=== PATIENT | female | born 1995 | race Caucasian/White ===

== ENCOUNTER 2016-09-22 14:50 | Emergency (ER) | payer OTHER ==
--- NOTE | 2016-09-22 15:04 | Emergency Department Record ---
History of Present Illness - General Stated Complaint: bucked off a horse Time Seen by Provider: 09/22/16 14:57 Source: Patient Mode of Arrival: Wheelchair Limitations: No limitations - History of Present Illness Initial Comments: 21 yo female presents after a fall off a horse. She fell off landing on her left side. No LOC but her helmet broke. No headache or neck pain. She has pain over the left flank down to the left hip. She was unable to bear weight. No right sided pain. She is a normally healthy person. She is on control and just had a menstrual cycle. No history of surgery. MD Complaint: Fall -: Minutes(s) Fall From: Other (Off a horse) Fall Witnessed: Yes, by bystander Place Fall Occurred: Work Loss of Consciousness: None Prolonged Down Time?: No Symptoms Prior to Fall: None Location: Chest, Back, Abdomen Location - Extremities: Left: Shoulder Severity: Severe Severity scale (1-10): 9 Quality: Aching Associated Symptoms: Abdominal pain, Chest pain - Juan Alberto Coma Scale Eye Response: (4) Open spontaneously Motor Response: (6) Obeys commands Verbal Response: (5) Oriented Juan Alberto Total: 15 - Related Data Home Medications Medication Instructions Recorded Confirmed Last Taken Ethynodiol D-Ethinyl Estradiol #28 01/16/16 Unknown [[place] 1-35 28 Tablet] Previous Rx's Medication Instructions Recorded Hydrocodone/Acetaminophen [[place] 1 tab PO Q6H PRN #20 tab 09/22/16 7.5mg/325mg] Naproxen [Naprosyn] 500 mg PO Q12H #20 tab 09/22/16 Allergies Allergy/AdvReac Type Severity Reaction Status Date / Time No Known Drug Allergies Allergy Unverified 01/16/16 11:18 Review of Systems Constitutional: Denies: Chills, Fever, Malaise, Weakness Eyes: Denies: Eye discharge ENT: Denies: Congestion, Throat pain Respiratory: Denies: Cough, Dyspnea, Hemoptysis, Stridor, Wheezes Cardiovascular: Reports: Chest pain. Denies: Palpitations, Syncope Endocrine: Denies: Fatigue, Polydipsia, Polyuria Gastrointestinal: Reports: Abdominal pain. Denies: Diarrhea, Nausea, Vomiting Genitourinary: Denies: Dysuria Musculoskeletal: Reports: Back pain, Myalgia. Denies: Neck pain Skin: Denies: Bruising, Change in color Neurological: Denies: Confusion, Headache, Numbness, Tremors, Vertigo, Weakness Psychiatric: Denies: Anxiety Hematological/Lymphatic: Denies: Blood Clots, Easy bleeding, Easy bruising, Swollen glands Past Medical History - SOCIAL HISTORY Smoking Status: Never smoker - RESPIRATORY Hx Respiratory Disorders: No - CARDIOVASCULAR Hx Cardio Disorders: No - NEURO Hx Neuro Disorders: No - GI Hx GI Disorders: No - Hx Genitourinary Disorders: No - ENDOCRINE Hx Endocrine Disorders: No - MUSCULOSKELETAL Hx Musculoskeletal Disorders: No - PSYCH Hx Psych Problems: No - HEMATOLOGY/ONCOLOGY Hx Hematology/Oncology Disorders: No Physical Exam - General General Appearance: Alert, Oriented x3, Cooperative, No acute distress Limitations: No limitations - Head Head exam: Atraumatic, Normocephalic, Normal inspection Head exam detail: negative: Abrasion, Contusion, Man's sign, General tenderness, Hematoma, Laceration - Eye Eye exam: Normal appearance, PERRL, EOMI. negative: Conjunctival injection, Periorbital swelling - ENT ENT exam: Normal exam, Mucous membranes moist Ear exam: Normal external inspection Nasal Exam: Normal inspection Mouth exam: Normal external inspection - Neck Neck exam: Normal inspection, Full ROM. negative: Tenderness - Respiratory Respiratory exam: Normal lung sounds bilaterally, Chest wall tenderness (left lower lateral ribs). negative: Respiratory distress - Cardiovascular Cardiovascular Exam: Regular rate, Normal rhythm, Normal heart sounds - GI/Abdominal GI/Abdominal exam: Soft, Tenderness (tender lateral flank). negative: Guarding - Rectal Rectal exam: Deferred - exam: Deferred - Extremities Extremities exam: Normal capillary refill, Tenderness. negative: Normal inspection, Full ROM Image of Full Body: 1 - superficial abrasion 2 - tender to palpation , no skin changes - Back Back exam: Reports: CVA tenderness (L), Paraspinal tenderness, Tenderness. Denies: Full ROM - Neurological Neurological exam: Alert, Normal gait, Oriented X3. negative: Motor sensory deficit - Psychiatric Psychiatric exam: Normal affect, Normal mood - Skin Skin exam: Dry, Intact, Normal color, Warm Course - Reevaluation(s) Reevaluation #1: Trauma activation 09/22/16 15:18 The labs were reviewed No acute changes 09/22/16 16:31 Reevaluation #2: The CT scan of the head, cervical, chest, abdomen and pelvis are negative. No acute injuries This was discussed with the patient She was re-examined. No new areas of pain outside of the areas CT scanned. We discussed home care with not weight bearing until pain free, recheck in the ED or PCP this week We discussed reasons to return to the ER for a recheck as well. 09/22/16 16:30 Medical Decision Making - Lab Data Result diagrams: 09/22/16 15:06 09/22/16 15:06 Disposition Disposition: Discharge Clinical Impression: Contusion, hip Qualifiers: Encounter type: initial encounter Laterality: left Qualified Code(s): S70.02XA - Contusion of left hip, initial encounter Fall Qualifiers: Encounter type: initial encounter Qualified Code(s): W19.XXXA - Unspecified fall, initial encounter Disposition: Home, Self-Care Condition: (1) Good Instructions: Hip Contusion (ED) Additional Instructions: No weight bearing until pain free Use the crutches at all times until pain free Return if you have uncontrolled pain, any new pain, any new concerns Either see your doctor or return this week for a recheck of your injuries Prescriptions: Hydrocodone/Acetaminophen [[place] 7.5mg/325mg] 1 tab PO Q6H PRN #20 tab PRN Reason: Pain - General Naproxen [Naprosyn] 500 mg PO Q12H #20 tab.dr Forms: Patient Portal Access Time of Disposition: 17:26 Quality - Quality Measures Quality Measures: N/A - Blood Pressure Screening View Details: Yes Blood Pressure Classification: Hypertensive Reading Systolic Measurement: 140 Diastolic Measurement: 79 Screening for High Blood Pressure: < Pre-Hypertensive BP, F/U Documented > [ G8950] Pre-Hypertensive Follow-up Interventions: Referral to alternative/primary care provider.
[2016-09-22] MEDS ORDERED: ONDANSETRON HCL IV 4 MG/2 ML VIAL IVP ONE (15:11)
[2016-09-22] MEDS: ONDANSETRON HCL IV 4 MG/2 ML VIAL IVP ONE (15:13)
[2016-09-22] MEDS: MORPHINE SULFATE 5 MG/ML PFS IVP ONE (15:13)
[2016-09-22] MEDS: 0.9 % SODIUM CHLORIDE 1,000 ML BAG IV ONE (15:14)
[2016-09-22 15:19] LABS: BASO % 0.5 % (0-6); EOS % 1.1 % (0-6); HEMATOCRIT 41.4 % (35.0-47.0); HEMOGLOBIN 14.3 gm/dl (11.6-16.0); LYMPH % 41.2 % (16-45); MEAN CORPUSCULAR HGB CONC 34.5 g/dl (32-36); MEAN PLATELET VOLUME 9.2 fl (7.4-10.4); MONO % 7.2 % (0-9); PLATELET COUNT 284 K/uL (130-400); RED BLOOD COUNT 4.76 M/uL (3.80-5.40); RED CELL DISTRIBUTION WIDTH 11.2 % (11.5-14.5); WHITE BLOOD COUNT W/O DIFF 8.2 K/uL (4.2-12.2)
[2016-09-22 15:41] LABS: INR 0.94; LACTIC ACID 1.3 mmol/L (0.7-2.1); PARTIAL THROMBOPLASTIN TIME 24.4 SECONDS (24.5-39.1); PROTHROMBIN TIME (PATIENT) 10.1 SECONDS (9.5-12.1)
[2016-09-22 15:56] LABS: BLOOD UREA NITROGEN 12 mg/dL (7-17); CREATININE 0.8 mg/dL (0.52-1.04); EST GLOMERULAR FILTRATION RATE > 60 ml/min; GLUCOSE,RANDOM 100 mg/dL (70-110)
[2016-09-22 15:58] LABS: ALB/GLOB RATIO 1.3 (1.1-1.8); ALBUMIN 4.3 gm/dL (3.5-5.0); ALKALINE PHOSPHATASE 58 U/L (38-126); ALT/SGPT 34 U/L (9-52); AST/SGOT 23 U/L (14-36); TOTAL PROTEIN 7.5 gm/dL (6.3-8.2)
[2016-09-22 16:08] LABS: ABO GROUP B; ANTIBODY SCREEN NEGATIVE (NEGATIVE); RH TYPE POSITIVE
[2016-09-22] MEDS: KETOROLAC 30 MG/ML VIAL IVP ONE (16:47)
--- NOTE | 2016-09-23 22:10 | CT SCAN REPORT ---
EXAM: CT SCAN HEAD WO CONTRAST HISTORY: BUCKED OFF HORSE. TECHNIQUE: Sequential axial images were obtained from the foramen magnum to the vertex without contrast administration. FINDINGS: Brain volume is normal. No large territorial infarct, hemorrhage, mass effect, or midline shift. No extraaxial fluid collection. Orbits, paranasal sinuses, and mastoid air cells are normal. No depressed skull fracture. IMPRESSION: NO ACUTE INTRACRANIAL ABNORMALITY IS APPRECIATED. JOB NUMBER: [id number] [facility]
--- NOTE | 2016-09-23 22:15 | CT SCAN REPORT ---
EXAM: CT SCAN CERVICAL SPINE WO CONTRAST HISTORY: BUCKED OFF HORSE. TECHNIQUE: Sequential axial images were obtained through the cervical spine without intravenous contrast administration. Sagittal and coronal reformatted images were performed. FINDINGS: There is reversal of the normal cervical lordosis. There is no evidence of fracture, subluxation, or perched facet. No significance degenerative change. Evaluation of the spinal canal is limited by CT technique. Visualized lung apices appear normal. IMPRESSION: MILD REVERSAL OF THE NORMAL CERVICAL LORDOSIS. NO EVIDENCE OF FRACTURE, SUBLUXATION, OR PERCHED FACET. JOB NUMBER: [id number] [facility]
--- NOTE | 2016-09-23 22:21 | CT SCAN REPORT ---
EXAM: CT SCAN CHEST W CONTRAST HISTORY: THROWN FROM HORSE. TECHNIQUE: Sequential axial images were obtained through the chest after intravenous administration of 100 mL of Omnipaque-300 contrast material. Sagittal and coronal reconstructed images were performed. FINDINGS: The mediastinal vasculature enhances normally. The heart and pericardium appears normal. The thoracic aorta appears normal. No evidence of transection. Mediastinum appears normal. Lung dodson are clear. No pneumothorax. No thoracic spine injury. No rib fracture deformity. IMPRESSION: NEGATIVE CT EXAMINATION OF THE CHEST. JOB NUMBER: [id number] [facility]
--- NOTE | 2016-09-23 22:29 | CT SCAN REPORT ---
EXAM: CT SCAN ABDOMEN/PELVIS W CONTRAST HISTORY: THROWN FROM HORSE. TECHNIQUE: SEQUENTIAL AXIAL IMAGES WERE OBTAINED FROM THE DIAPHRAGMS THROUGH THE ISCHIORECTAL FOSSA AFTER INTRAVENOUS ADMINISTRATION OF 100 ML OF OMNIPAQUE- 300 CONTRAST MATERIAL. SAGITTAL AND CORONAL REFORMATTED IMAGES WERE PERFORMED. FINDINGS: Visualized lung bases appear normal. The liver, gallbladder, pancreas , and spleen appear normal. The adrenal glands and kidneys appear normal. The small and large bowel appears normal. The urinary bladder appears normal. The uterus and adnexal structures are normal. There is a small amount of free fluid in the cul-de-sac, likely physiologic. The osseous structures are intact. IMPRESSION: NEGATIVE CT EXAMINATION OF THE ABDOMEN AND PELVIS. JOB NUMBER: [id number] [facility]
== END 2016-09-22 17:48 | disposition home or self-care (01) ==
LOC: ER 14:50
DX: S70.02XA Contusion of left hip, initial encounter (principal); S40.212A Abrasion of left shoulder, initial encounter; R07.89 Other chest pain; R10.84 Generalized abdominal pain; R11.0 Nausea; R51 Headache; M54.9 Dorsalgia, unspecified; V80.010A Animal-rider injured by fall from or being thrown from horse in noncollision accident, initial encounter; Y99.0 Civilian activity done for income or pay
CPT/HCPCS: 70450; 71260; 72125; 74177; 80053; 80320; 83605; 84703; 85025; 85610; 85730; 86850; 86900; 86901; 96374; 96375; 99284; J1885; J2405; J7030

== ENCOUNTER 2018-04-04 18:08 | Emergency (ER) | payer OTHER ==
[2018-04-04] MEDS ORDERED: IBUPROFEN 600 MG TABLET PO ONE (18:15)
--- NOTE | 2018-04-04 18:20 | Emergency Department Record ---
History of Present Illness - General Chief Complaint: Fall Injury Stated Complaint: FELL OFF HORSE/HEADACHE,NAUSEA Time Seen by Provider: 04/04/18 18:14 Source: Patient Mode of Arrival: Ambulatory Limitations: No limitations - History of Present Illness Initial Comments: 22 yo female presents to ED for evaluation of injury to the head following a fall at walking pace from a horse. Patient reports that "something spooked the horse, it bucked and threw me off onto the left side of my head". Patient denies LOC, denies extremity numbness, tingling, or weakness on examination. Patient denies health problems at her baseline, does not use anticoagulation medications. MD Complaint: Fall Onset/Timin -: Minutes(s) Fall From: From height (distance) When Fall Occurred: Just prior to arrival Fall Witnessed: Yes, by bystander Place Fall Occurred: Home Loss of Consciousness: None Prolonged Down Time?: No Symptoms Prior to Fall: None Location: Head Location - Extremities: Left: Shoulder Severity: Moderate Quality: Aching - [place] Coma Scale Eye Response: (4) Open spontaneously Motor Response: (6) Obeys commands Verbal Response: (5) Oriented Spencer Total: 15 - Related Data Previous Rx's Medication Instructions Recorded Hydrocodone/Acetaminophen [[place] 1 tab PO Q6H PRN #20 tab 09/22/16 7.5mg/325mg] Naproxen [Naprosyn] 500 mg PO Q12H #20 tab. 09/22/16 Allergies Allergy/AdvReac Type Severity Reaction Status Date / Time No Known Drug Allergies Allergy Unverified 01/16/16 11:18 Review of Systems Constitutional: Denies: Chills, Fever, Malaise, Night sweats Eyes: Denies: Eye discharge, Eye pain ENT: Denies: Congestion, Ear pain, Epistaxis Respiratory: Denies: Cough, Dyspnea Cardiovascular: Denies: Chest pain, Dyspnea on exertion Endocrine: Denies: Fatigue, Heat or cold intolerance Gastrointestinal: Reports: Nausea. Denies: Abdominal pain, Vomiting Genitourinary: Denies: Incontinence, Retention Musculoskeletal: Reports: Arthralgia. Denies: Back pain, Gout, Joint swelling Skin: Denies: Bruising, Change in color Neurological: Reports: Headache. Denies: Abnormal gait, Confusion, Numbness, Tingling, Tremors Psychiatric: Denies: Anxiety Hematological/Lymphatic: Denies: Anemia, Blood Clots Past Medical History - SOCIAL HISTORY Smoking Status: Never smoker - RESPIRATORY Hx Respiratory Disorders: No - CARDIOVASCULAR Hx Cardio Disorders: No - NEURO Hx Neuro Disorders: No - GI Hx GI Disorders: No - Hx Genitourinary Disorders: No - ENDOCRINE Hx Endocrine Disorders: No - MUSCULOSKELETAL Hx Musculoskeletal Disorders: No - PSYCH Hx Psych Problems: No - HEMATOLOGY/ONCOLOGY Hx Hematology/Oncology Disorders: No Family Medical History Family Hx Comment (NOT TO BE USED IN PLACE OF ITEMS BELOW): unknown Physical Exam - General General Appearance: Alert, Oriented x3, Cooperative, Mild distress Limitations: No limitations - Head Head exam: Atraumatic, Normocephalic, Normal inspection Head exam detail: negative: Abrasion, Contusion, Man's sign, General tenderness, Hematoma, Laceration - Eye Eye exam: Normal appearance. negative: Conjunctival injection, Periorbital swelling, Periorbital tenderness, Scleral icterus - ENT Ear exam: negative: Auricular hematoma, Auricular trauma Nasal Exam: negative: Active bleeding, Discharge, Dried blood, Foreign body Mouth exam: negative: Drooling, Laceration, Muffled voice, Tongue elevation - Neck Neck exam: Normal inspection. negative: Meningismus, Tenderness - Respiratory Respiratory exam: Normal lung sounds bilaterally. negative: Respiratory distress, Rhonchi, Stridor, Wheezes - Cardiovascular Cardiovascular Exam: Regular rate, Normal rhythm, Normal heart sounds - GI/Abdominal GI/Abdominal exam: Soft. negative: Rebound, Rigid, Tenderness - Rectal Rectal exam: Deferred - exam: Deferred - Extremities Extremities exam: Full ROM, Tenderness (Mild TTP over the elbow laterally, no deformity noted, no pain with palpation of the lefty shoulder/wrist, strong distal radial pulse, compartments of the upper/forearm are sfoft on examination. ). negative: Pedal edema - Back Back exam: Denies: CVA tenderness (R), CVA tenderness (L) - Neurological Neurological exam: Alert, Normal gait, Oriented X3 - Psychiatric Psychiatric exam: Normal affect, Normal mood - Skin Skin exam: Normal color. negative: Abrasion Type of lesion: negative: abrasion Course - Reevaluation(s) Reevaluation #1: 04/04/18 19:33 CT Head: Negative CT Cervical Spine: Negative Left elbow: Negative for fracture Patient was updated on all results, reports improvement in her symptoms following Ibuprofen. Patient appears stable for discharge home at this time. Disposition Disposition: Discharge Clinical Impression: Multiple contusions Fall Qualifiers: Encounter type: initial encounter Qualified Code(s): W19.XXXA - Unspecified fall, initial encounter Disposition: Home, Self-Care Condition: (2) Stable Instructions: Contusion in Adults (ED) Additional Instructions: Return to ED if your symptoms worsen or if you have any concerns. Ibuprofen as needed. Follow-up with your family doctor in 3-5 days as directed. Forms: Patient Portal Access Time of Disposition: 19:34 Quality - Quality Measures Quality Measures: N/A - Blood Pressure Screening Does Patient Have Any of the Following: No Blood Pressure Classification: Pre-Hypertensive BP Reading Systolic Measurement: 136 Diastolic Measurement: 76 Screening for High Blood Pressure: < Pre-Hypertensive BP, F/U Documented > [ G8950] Pre-Hypertensive Follow-up Interventions: Referral to alternative/primary care provider.
--- NOTE | 2018-04-06 19:23 | CT SCAN REPORT ---
DATE: 04/04/2018 at 1839 hours. EXAM: CT OF THE HEAD WITHOUT CONTRAST. HISTORY: Fell off horse. TECHNIQUE: Noncontrast CT of the head was obtained. FINDINGS: Brain volume is normal. There is no evidence of hemorrhage, mass effect, midline shift, or acute transcortical infarction. No extraaxial fluid collections are seen. The ventricles and basal cisterns are preserved. IMPRESSION: NORMAL CT SCAN OF THE BRAIN. JOB NUMBER: [id number] [facility]TDD
--- NOTE | 2018-04-07 05:02 | CT SCAN REPORT ---
DATE: 04/04/2018 at 1842 hours. EXAM: CT OF THE CERVICAL SPINE WITHOUT CONTRAST. HISTORY: Fall from horse. TECHNIQUE: Noncontrast images are obtained from the skull base through the thoracic inlet. FINDINGS: There is mild reversal of the cervical lordosis at C5. There is no fracture. There is no acute malalignment. The facet joints are unremarkable. Adjacent soft tissues are within normal limits. The airway is preserved. IMPRESSION: MILD REVERSAL OF THE CERVICAL LORDOSIS WHICH MAY BE DUE TO POSITIONING OR MUSCULAR SPASM. NO FRACTURE OR ACUTE MALALIGNMENT. JOB NUMBER: [id number] [facility]TDD
--- NOTE | 2018-04-07 05:07 | RADIOLOGY REPORT ---
DATE: 04/04/2018 at 1855 hours. EXAM: LEFT ELBOW. HISTORY: Fall off horse. Elbow pain. TECHNIQUE: Three views of the left elbow are obtained. FINDINGS: No fractures are seen. There is no evidence of joint effusion. IMPRESSION: NEGATIVE. JOB NUMBER: [id number] [facility]TDD
== END 2018-04-04 19:48 | disposition home or self-care (01) ==
LOC: ER 18:08
DX: S00.93XA Contusion of unspecified part of head, initial encounter (principal); S40.012A Contusion of left shoulder, initial encounter; W17.89XA Other fall from one level to another, initial encounter; Y93.52 Activity, horseback riding
CPT/HCPCS: 70450; 72125; 99284

== ENCOUNTER 2019-03-31 09:26 | Emergency (ER) | payer SELFPAY ==
[2019-03-31] MEDS ORDERED: ACETAMINOPHEN 325 MG TAB PO ONE (09:51)
--- NOTE | 2019-03-31 09:54 | Emergency Department Record ---
History of Present Illness - General Chief complaint: Head Injury Stated complaint: FELL HIT HEAD Time Seen by Provider: 03/31/19 09:45 Source: Patient Mode of Arrival: Ambulatory Limitations: No limitations - History of Present Illness Initial comments: The patient is here due to injuring her head just over an hour ago at home. She was head butted over the back of the head by a horse and then fell forwar onto her knees. After the injury she was a little dizzy and did develop a JORGE but has had no vomiting, visual changes, balance issues or confusion. Now she is feeling better but does have a mild JORGE and very mild nausea. The patient has no medical issues and is on no blood thinners. MD Complaint: Head injury Onset/Timin -: Hour(s) Mechanism of Injury: Animal related injury Location: Occipital Loss of Consciousness: No Previous Trauma to this Area: No Place: Outdoors Quality: Other Associated Symptoms: Denies other symptoms - Related Data Allergies/Adverse reactions: Allergies Allergy/AdvReac Type Severity Reaction Status Date / Time No Known Drug Allergies Allergy Unverified 01/16/16 11:18 Travel Screening - Travel/Exposure Within Last 30 Days Have you traveled within the last 30 days?: No - Travel/Exposure Within Last Year Have you traveled outside the [place] in the last year?: Yes Location Detail:: [place] - Additonal Travel Details Have you been exposed to anyone with a communicable illness?: No - Travel Symptoms Symptom Screening: None Review of Systems Constitutional: Denies: Chills, Fever Eyes: Denies: Eye discharge ENT: Denies: Congestion Respiratory: Denies: Cough, Dyspnea Past Medical History - SOCIAL HISTORY Smoking Status: Never smoker Alcohol Use: Occasional Drug Use: Occasional Drug Use Detail:: Marijuana - RESPIRATORY Hx Respiratory Disorders: No - CARDIOVASCULAR Hx Cardio Disorders: No - NEURO Hx Neuro Disorders: No - GI Hx GI Disorders: No - Hx Genitourinary Disorders: No - ENDOCRINE Hx Endocrine Disorders: No - MUSCULOSKELETAL Hx Musculoskeletal Disorders: No Comment:: previous head injury - PSYCH Hx Psych Problems: No - HEMATOLOGY/ONCOLOGY Hx Hematology/Oncology Disorders: No Family Medical History Any Significant Family History?: No Family Hx Comment (NOT TO BE USED IN PLACE OF ITEMS BELOW): unknown Physical Exam - General General Appearance: Alert, Oriented x3, Cooperative, No acute distress (The patient is smiling and clearly nontoxic in appearance.) - Head Head exam: Atraumatic, Normocephalic, Normal inspection - Eye Eye exam: Normal appearance, PERRL, EOMI. negative: Conjunctival injection - ENT ENT exam: TM's normal bilaterally Throat exam: Normal inspection. negative: Tonsillar erythema, Tonsillar exudate - Neck Neck exam: Normal inspection, Full ROM. negative: Tenderness - Respiratory Respiratory exam: Normal lung sounds bilaterally. negative: Respiratory distress - Cardiovascular Cardiovascular Exam: Regular rate, Normal rhythm, Normal heart sounds - GI/Abdominal GI/Abdominal exam: Soft, Normal bowel sounds. negative: Tenderness - Extremities Extremities exam: Normal inspection, Full ROM, Normal capillary refill. negative: Tenderness - Back Back exam: Denies: Vertebral tenderness - Neurological Neurological exam: Alert, Normal gait, Oriented X3, Other (Neg Drift and Rhomber g.). negative: Abnormal gait, Altered, Motor sensory deficit Course Vital Signs 03/31/19 09:37 Temperature 98.5 F Pulse Rate 98 H Respiratory 18 Rate Blood Pressure 138/83 Pulse Ox 85 L - Reevaluation(s) Reevaluation #1: The patient is doing very well at this time. Her JORGE is resolving and she denies any nausea or visual changes. She is up walking without difficulty and appears very comfortable and is very cooperative. I did explain to her that a head CT is not indicated at this time. She is to return to the ER for any worsening symptoms. 03/31/19 10:44 Disposition Disposition: Discharge Clinical Impression: Head injury due to trauma Qualifiers: Encounter type: initial encounter Qualified Code(s): S09.90XA - Unspecified injury of head, initial encounter Disposition: Home, Self-Care Condition: (2) Stable Instructions: Concussion (ED) Additional Instructions: Please rest and use Tylenol or Motrin for pain. Please see your doctor next week if not better. Return to the ER for any worsening headache, nausea, vomiting, or confusion. Forms: Patient Portal Access Time of Disposition: 10:46 Quality - Quality Measures Quality Measures: Blunt Head Trauma (>2yr) - Blunt Head Trauma - Adult Quality Measure: Measure #415: Utilization of CT for Minor Blunt Head Trauma ICD10 Codes Entered: Yes View Details: Yes Was CT ordered: No [place] Score: Please complete [place] Coma Scale above Utilization of CT for Minor Blunt Head Trauma: Not Eligible For Measure Additional Inclusion Criteria: More than 24hrs (OR) GCS not 15 (OR) CT not ordered. Not Eligible Reason: CT Not Ordered - Blood Pressure Screening View Details: Yes Does Patient Have Any of the Following: No Blood Pressure Classification: Pre-Hypertensive BP Reading Systolic Measurement: 138 Diastolic Measurement: 83 Screening for High Blood Pressure: < Pre-Hypertensive BP, F/U Documented > [G8950] Pre-Hypertensive Follow-up Interventions: Referral to alternative/primary care provider.
== END 2019-03-31 10:52 | disposition home or self-care (01) ==
LOC: ER 09:26
DX: S09.90XA Unspecified injury of head, initial encounter (principal); R51 Headache; R42 Dizziness and giddiness; W55.12XA Struck by horse, initial encounter; Y92.007 Garden or yard of unspecified non-institutional (private) residence as the place of occurrence of the external cause
CPT/HCPCS: 99282